=== PATIENT | male | born 1945 | race Two or more races ===

== ENCOUNTER 2018-08-08 16:19 | Outpatient (CLI) | payer OTHER ==
[~2018-08-08] VITALS: Ht 170.2 cm; Wt 72.1 kg
== END 2018-08-08 18:35 | disposition home or self-care (01) ==
LOC: OFIC 805 16:19
DX: J32.8 Other chronic sinusitis (principal); R09.81 Nasal congestion; R49.0 Dysphonia; K21.0 Gastro-esophageal reflux disease with esophagitis

== ENCOUNTER 2018-09-29 10:12 | Outpatient (CLI) | payer OTHER ==
[~2018-09-29] VITALS: Ht 152.4 cm; Wt 72.1 kg
== END 2018-09-29 10:30 | disposition home or self-care (01) ==
LOC: OFIC 805 10:12
DX: R09.81 Nasal congestion (principal); R49.0 Dysphonia; J32.8 Other chronic sinusitis

== ENCOUNTER → 2021-05-05 14:13 | Outpatient (CLI) | payer OTHER | END | disposition home or self-care (01) | LOC: RAD 14:13 | PROVIDERS: ATTEND Physical Medicine & Rehabilitation | DX: M50.323 Other cervical disc degeneration at C6-C7 level (principal) ==

== ENCOUNTER 2022-04-25 13:31 | Emergency (ER) | payer OTHER ==
[~2022-04-25] VITALS: Ht 170.2 cm; Wt 59.0 kg
== END 2022-04-25 14:37 | disposition left against medical advice (07) ==
LOC: ER 13:31
DX: Z53.21 Procedure and treatment not carried out due to patient leaving prior to being seen by health care provider (principal)

== ENCOUNTER 2022-06-11 10:02 | Emergency (ER) | payer OTHER ==
[~2022-06-11] VITALS: Ht 170.2 cm; Wt 74.4 kg
[2022-06-11] MEDS ORDERED: NAPR500T14 PO (10:18)
== END 2022-06-11 12:57 | disposition home or self-care (01) ==
LOC: ER 10:02
DX: S90.122A Contusion of left lesser toe(s) without damage to nail, initial encounter (principal); X58.XXXA Exposure to other specified factors, initial encounter; Y93.9 Activity, unspecified; Y92.9 Unspecified place or not applicable; Y99.9 Unspecified external cause status; Z88.2 Allergy status to sulfonamides